=== PATIENT | female | born 1955 | race Caucasian/White ===

== ENCOUNTER → 2018-02-02 12:12 | Outpatient (CLI) | payer MEDICARE ==
[2016-02-29 14:30] VITALS: BMI 26.6
[~2018-02-02 12:12] MED LIST: AMERGE2.5 MG PO; ASCORBIC ACID500 MG PO; CALCIUM 600+D T1 TA1 PO; CYMBALTA60 MG PO; DIPROLENE 0.05%60 M1 TOPICAL; ESTRACE1 MG PO; K-DUR20 MEQ PO; K-TAB10 MEQ PO; KLONOPIN0.5 MG PO; LEVOTHYROXINE150 MCG PO; LIPITOR20 MG PO; LOMOTIL TABLET1 TAB PO; MAG-OX 400 MG400 MG PO; OS-CAL500 MG PO; PACERONE200 MG PO; PERCOCET 7.5/321 TAB PO; PRESERVISION AR1 CAP PO; PROBIOTIC1 EAC1 PO; TRAZODONE HCL50 MG PO; ULTRAM50 MG PO; VIBRAMYCIN 100100 MG; VITAMIN D5000 UNIT PO; WELLBUTRIN XL150 M1 PO; ZANAFLEX4 MG PO
== END | disposition home or self-care (01) ==
LOC: D.RAD 12:12
DX: M54.5 Low back pain (principal)